=== PATIENT | female | born 1975 | race Caucasian/White ===

== ENCOUNTER → 2018-02-20 08:19 | Outpatient (CLI) | payer OTHER, SELFPAY ==
--- NOTE | 2018-02-20 08:24 | MM_ITS ---
MM Dig SC mamm implant BI CAD CAD Screening ORDERING PHYSICIAN : Connie Martinez PATIENT AGE: 42 years GENDER: Female INDICATION: Routine screening. No new complaints. No hormones. Noncontributory family history. Bilateral breast implants TECHNIQUE: TECHNIQUE: Lyssa technique utilized. CC & MLO images were obtained of the breast tissue overlying implant, as well as a second set of images including the breast implant. Mammography is inherently limited due to the implants is a could obscure areas of breast . R2 CAD reviewed. This Included ... COMPARISON: Previous mammograms: 2014 & July 2014 FINDINGS: Moderately dense heterogeneous breast tissue is seen overlying implants both breast. . Prior films are helpful in showing that there is similar character of this heterogeneous moderately dense glandular pattern,, similar dating back to 2013 mammogram prior to breast implant placement. No definitive new areas of concern. I would encourage regular, annual follow-up to optimally visualize and follow breast tissue for any change Self breast examination would be warranted encouraged as well in this moderately dense breasts. .CAD computer review highlights no areas of concern either. \ IMPRESSION: ======= No new areas of significant concern in this Moderately dense heterogeneous breast .. would recommend & encourage annual follow-up BI-RADS Category: 2 Benign Finding(s) RECOMMENDED FOLLOW-UP: 1YR - 1 YEAR FOLLOW-UP (A letter has been sent to the patient regarding results of the study.)
== END ==
PROVIDERS: Family Provider Family Medicine; PCP Family Medicine; Visit Provider Obstetrics & Gynecology
DX: Z12.31 Encounter for screening mammogram for malignant neoplasm of breast (principal)
CPT/HCPCS: 77067

== ENCOUNTER → 2018-03-25 19:05 | Outpatient (CLI) | payer OTHER, SELFPAY ==
--- NOTE | 2018-03-25 19:18 | XR_ITS ---
XR chest 2V HISTORY: Evaluate for infection before starting new medication ORDERING PHYSICIAN: Magnolia Valles PATIENT AGE: 42 years COMPARISON: 08/14/2014 FINDINGS: The cardiomediastinal silhouette and pulmonary vascularity are within normal limits. The lungs are clear without infiltrates, suspicious nodules, or pleural effusions. Bilateral breast implants somewhat obscure the overlying lung haynes No acute bony abnormalities. IMPRESSION: No acute finding
[2018-03-25 19:50] LABS: Basophils # 0.1 K/mm3 (0-0.2); Basophils % 0.6 % (0.1-2.0); Eosinophils # 0.2 K/mm3 (0.0-0.4); Hematocrit 43.5 % (37.0-47.0); Lymphocytes # 3.7 K/mm3 (0.7-4.5); Mean Corpuscular HGB Conc 32.2 g/dL (31.8-35.4); Mean Corpuscular Hemoglobin 28.9 pg (27.0-31.2); Mean Corpuscular Volume 89.7 fl (81-99); Mean Platelet Volume 7.9 fl (7.4-10.4); Monocytes # 0.6 K/mm3 (0.1-1.0); Monocytes % 5.8 % (1.7-9.3); Neutrophils # 5.7 K/mm3 (1.8-7.8); Neutrophils % 55.6 % (37.0-80.0); Platelet Count 263 K/mm3 (142-424); Red Blood Count 4.85 M/mm3 (4.20-5.40); Red Cell Distribution Width 14.6 % (11.5-17.5); White Blood Count 10.3 K/mm3 (4.8-10.8)
[2018-03-25 22:50] LABS: Alanine Aminotransferase 22 U/L (12-78); Alkaline Phosphatase 87 U/L (46-116); Aspartate Amino Transferase 16 U/L (15-37); Bilirubin,Direct 0.2 mg/dL (0.0-0.2); Bilirubin,Indirect 0.1 mg/dL (0.0-0.9); Bilirubin,Total 0.3 mg/dL (0.2-1.0); Total Protein,Serum 8.7 gm/dL (6.4-8.2)
[2018-03-27 14:48] LABS: Hep B Surface Ab, Qual Reactive (.); Hepatitis B Surface Antigen Negative (Negative); Hepatitis C Antibody <0.1 s/co ratio (0.0-0.9)
[2018-03-27 14:49] LABS: HIV Screen 4th Generation wRfx Non Reactive (Non Reactive)
== END ==
LOC: LAB 19:10 → RAD 19:19
PROVIDERS: PCP Nurse Practitioner; Visit Provider Nurse Practitioner
DX: L40.0 Psoriasis vulgaris (principal); Z79.899 Other long term (current) drug therapy
CPT/HCPCS: 36415; 71046; 80076; 85025; 86703; 86706; 87340; 87380; G0432

== ENCOUNTER → 2018-09-25 09:13 | Outpatient (CLI) | payer OTHER, SELFPAY ==
[2018-09-25 09:28] LABS: Basophils % 0.6 % (0.1-2.0); Eosinophils # 0.1 K/mm3 (0.0-0.4); Hematocrit 37.7 % (37.0-47.0); Hemoglobin 12.1 g/dL (12.2-16.2); Lymphocytes # 1.8 K/mm3 (0.7-4.5); Lymphocytes % 27.5 K/mm3 (10-50); Mean Corpuscular HGB Conc 32.1 g/dL (31.8-35.4); Mean Corpuscular Hemoglobin 28.1 pg (27.0-31.2); Mean Corpuscular Volume 87.6 fl (81-99); Mean Platelet Volume 7.3 fl (7.4-10.4); Monocytes # 0.5 K/mm3 (0.1-1.0); Monocytes % 7.1 % (1.7-9.3); Neutrophils % 62.7 % (37.0-80.0); Platelet Count 271 K/mm3 (142-424); Red Cell Distribution Width 14.5 % (11.5-17.5); White Blood Count 6.4 K/mm3 (4.8-10.8)
[2018-09-25 11:18] LABS: Alanine Aminotransferase 16 U/L (12-78); Albumin Level 4.1 gm/dL (3.4-5.0); Alkaline Phosphatase 66 U/L (46-116); Aspartate Amino Transferase 14 U/L (15-37); Bilirubin,Direct 0.1 mg/dL (0.0-0.2); Bilirubin,Indirect 0.4 mg/dL (0.0-0.9); Bilirubin,Total 0.5 mg/dL (0.2-1.0); Total Protein,Serum 7.2 gm/dL (6.4-8.2)
== END ==
PROVIDERS: Visit Provider Nurse Practitioner
DX: Z79.899 Other long term (current) drug therapy (principal); L40.0 Psoriasis vulgaris
CPT/HCPCS: 36415; 80076; 85025

== ENCOUNTER → 2018-10-18 12:32 | Outpatient (CLI) | payer OTHER, SELFPAY ==
[2018-10-18 13:12] LABS: Basophils # 0.1 K/mm3 (0-0.2); Basophils % 0.6 % (0.1-2.0); Eosinophils # 0.1 K/mm3 (0.0-0.4); Eosinophils % 1.4 % (0.1-12.0); Hematocrit 37.7 % (37.0-47.0); Hemoglobin 11.9 g/dL (12.2-16.2); Lymphocytes # 2.1 K/mm3 (0.7-4.5); Lymphocytes % 26.6 % (10-50); Mean Corpuscular HGB Conc 31.5 g/dL (31.8-35.4); Mean Corpuscular Hemoglobin 27.9 pg (27.0-31.2); Mean Corpuscular Volume 88.3 fl (81-99); Mean Platelet Volume 7.8 fl (7.4-10.4); Monocytes # 0.4 K/mm3 (0.1-1.0); Monocytes % 5.6 % (1.7-9.3); Neutrophils # 5.2 K/mm3 (1.8-7.8); Neutrophils % 65.8 % (37.0-80.0); Platelet Count 247 K/mm3 (142-424); Red Blood Count 4.28 M/mm3 (4.20-5.40); Red Cell Distribution Width 14.6 % (11.5-17.5); White Blood Count 7.9 K/mm3 (4.8-10.8)
[2018-10-18 14:09] LABS: Alanine Aminotransferase 18 U/L (12-78); Albumin Level 3.9 gm/dL (3.4-5.0); Albumin/Globulin Ratio 1.3 (1.1-1.8); Alkaline Phosphatase 53 U/L (46-116); Anion Gap 13.1 mEq/L (5-15); Aspartate Amino Transferase 9 U/L (15-37); Bilirubin,Total 0.6 mg/dL (0.2-1.0); Blood Urea Nitrogen 12 mg/dL (7-18); Calcium 8.6 mg/dL (8.5-10.1); Carbon Dioxide 25 mmol/L (21.0-32.0); Chloride 104 mmol/L (98-107); Chol/HDL Ratio 2.9 (1-3.5); Cholesterol 153 mg/dL (140-200); Creatinine,Serum 0.81 mg/dL (0.55-1.02); Estimated Glomerular Filt Rate 77 ml/min (>60); GFR (African American) 93 ML/MIN (>60); Glucose 87 mg/dL (74-106); HDL Cholesterol 52 mg/dL (29-89); LDL Cholesterol 92 mg/dL (0-130); Potassium 4.1 mmoL/L (3.5-5.1); Sodium 138 mmol/L (136-145); Total Protein,Serum 6.9 gm/dL (6.4-8.2); Triglycerides 44 mg/dL (30-200); VLDL Cholesterol 9 mg/dL (0-40)
[2018-10-20 11:39] LABS: Iron 91 ug/dL (27-159); UIBC 241 ug/dL (131-425)
[2018-10-20 14:16] LABS: Iron Saturation 27 % (15-55); Vitamin D 25 Hydroxy 36.3 ng/mL (30.0-100.0)
[2018-10-20 14:46] LABS: Endomysial IgA Antibody Negative (Negative)
[2018-10-21 06:08] LABS: Deamidated Gliadin Abs, IgA 4 units (0-19); Deamidated Gliadin Abs, IgG 1 units (0-19); Tissue Transglutaminase IgA Ab <2 U/mL (0-3); Tissue Transglutaminase IgG Ab <2 U/mL (0-5)
[2018-10-21 06:09] LABS: Reticulin IgA Antibody Negative titer (Neg:<1:2.5); Vitamin B12 332 pg/mL (232-1245)
== END ==
PROVIDERS: Visit Provider Nurse Practitioner Acute Care
DX: R53.83 Other fatigue (principal)
CPT/HCPCS: 36415; 80053; 80061; 82607; 82652; 83516; 83540; 83550; 85025; 86255; 86256

== ENCOUNTER → 2019-01-15 20:55 | Outpatient (CLI) | payer BC, OTHER, SELFPAY ==
--- NOTE | 2019-01-15 21:25 | XR_ITS ---
XR chest 2V HISTORY: Dry cough ITS.REASON: PT IS ON SN[facility] BIOLOGIC MEDICATION, COUGH ORDERING PHYSICIAN: Amara Treviño PATIENT AGE: 43 years COMPARISON: 03 25 18 FINDINGS: The cardiomediastinal silhouette and pulmonary vascularity are within normal limits. The lungs are clear without infiltrates, suspicious nodules, or pleural effusions. Bilateral breast implants present No acute bony abnormalities. IMPRESSION: No change with no acute finding
[2019-01-15 21:29] LABS: Basophils # 0.1 K/mm3 (0-0.2); Basophils % 0.7 % (0.1-2.0); Eosinophils # 0.2 K/mm3 (0.0-0.4); Eosinophils % 1.8 % (0.1-12.0); Hematocrit 37.7 % (37.0-47.0); Hemoglobin 12.1 g/dL (12.2-16.2); Lymphocytes # 3.1 K/mm3 (0.7-4.5); Lymphocytes % 33.7 % (10-50); Mean Corpuscular HGB Conc 32.2 g/dL (31.8-35.4); Mean Corpuscular Hemoglobin 28.2 pg (27.0-31.2); Mean Corpuscular Volume 87.6 fl (81-99); Mean Platelet Volume 7.5 fl (7.4-10.4); Monocytes # 0.5 K/mm3 (0.1-1.0); Monocytes % 5.9 % (1.7-9.3); Neutrophils # 5.3 K/mm3 (1.8-7.8); Neutrophils % 57.9 % (37.0-80.0); Platelet Count 289 K/mm3 (142-424); Red Blood Count 4.31 M/mm3 (4.20-5.40); Red Cell Distribution Width 14.8 % (11.5-17.5); White Blood Count 9.1 K/mm3 (4.8-10.8)
[2019-01-15 23:38] LABS: Alanine Aminotransferase 16 U/L (12-78); Albumin Level 4.2 gm/dL (3.4-5.0); Albumin/Globulin Ratio 1.2 (1.1-1.8); Alkaline Phosphatase 79 U/L (46-116); Anion Gap 11.9 mEq/L (5-15); Aspartate Amino Transferase 7 U/L (15-37); Bilirubin,Total 0.3 mg/dL (0.2-1.0); Blood Urea Nitrogen 9 mg/dL (7-18); Calcium 9.1 mg/dL (8.5-10.1); Carbon Dioxide 29 mmol/L (21.0-32.0); Chloride 102 mmol/L (98-107); Estimated Glomerular Filt Rate 68 ml/min (>60); GFR (African American) 82 ML/MIN (>60); Globulin 3.5 gm/dl (1.3-3.2); Glucose 96 mg/dL (74-106); Potassium 3.9 mmoL/L (3.5-5.1); Sodium 139 mmol/L (136-145); Thyroid Stimulating Hormone 3.76 uIU/ml (0.358-3.740); Total Protein,Serum 7.7 gm/dL (6.4-8.2)
== END ==
PROVIDERS: PCP Family Medicine; Visit Provider Nurse Practitioner Acute Care
DX: R23.3 Spontaneous ecchymoses (principal); Z79.899 Other long term (current) drug therapy
CPT/HCPCS: 36415; 71046; 80053; 84443; 85025

== ENCOUNTER → 2019-01-16 10:30 | Outpatient (CLI) | payer BC, OTHER, SELFPAY ==
[2019-01-26 18:51] LABS: Occult Blood,Stool Negative (Negative)
== END ==
PROVIDERS: Visit Provider Nurse Practitioner Acute Care
DX: R23.3 Spontaneous ecchymoses (principal); Z79.899 Other long term (current) drug therapy
CPT/HCPCS: 82272; G0328

== ENCOUNTER → 2019-01-19 17:00 | Outpatient (CLI) | payer BC, OTHER, SELFPAY ==
[2019-01-26 18:51] LABS: Occult Blood,Stool Negative (Negative)
== END ==
PROVIDERS: Visit Provider Nurse Practitioner Acute Care
DX: R23.3 Spontaneous ecchymoses (principal); Z79.899 Other long term (current) drug therapy
CPT/HCPCS: 82272; G0328

== ENCOUNTER → 2019-01-20 18:30 | Outpatient (CLI) | payer BC, OTHER, SELFPAY ==
[2019-01-26 18:52] LABS: Occult Blood,Stool Negative (Negative)
== END ==
PROVIDERS: Visit Provider Nurse Practitioner Acute Care
DX: R23.3 Spontaneous ecchymoses (principal); Z79.899 Other long term (current) drug therapy
CPT/HCPCS: 82272; G0328

== ENCOUNTER → 2019-10-19 08:13 | Outpatient (CLI) | payer BC, OTHER, SELFPAY ==
--- NOTE | 2019-10-19 08:27 | MM_ITS ---
PROCEDURE: MM DIG SC MAMM IMPLANT BI CAD CLINICAL INDICATION: SCREENING There is no personal or family history of breast cancer. Patient has bilateral breast implants. COMPARISON: DMDB DIG MAMM-DX TK from 08/13/2014 DMID DIG MAMM-IMPLANT DX from 09/09/2015 [facility] MM Dig SC mamm implant BI CAD from 02/20/2018 TECHNIQUE: Standard CC and MLO images were obtained. R2 CAD reviewed in addition to specialized Aminata views. FINDINGS: The bilateral breast implants are intact with no evidence of leakage. Moderate heterogenic fibroglandular densities are seen in the [place] breast tissue. Heterogenic densities are most prominent in the upper outer quadrants as noted previously. There is a benign-appearing calcification right breast. There is no new or suspicious lesion and no suspicious microcalcifications. IMPRESSION: Stable exam with no suspicious lesions seen BI-RAD Category: 2 Benign Finding(s) FOLLOW-UP: 1YR 1 Year Follow-up (A letter has been sent to the patient regarding results of the study.) Dictated by: Dr. Remy Anderson MD 10/21/2019 13:[address] Remy Anderson MD in [place] 10/21/2019 13:54
[2019-10-19 09:41] LABS: Basophils # 0.1 K/mm3 (0-0.2); Basophils % 0.7 % (0.1-2.0); Eosinophils # 0.1 K/mm3 (0.0-0.4); Eosinophils % 2.1 % (0.1-12.0); Hematocrit 40.3 % (37.0-47.0); Hemoglobin 12.1 g/dL (12.2-16.2); Mean Corpuscular Hemoglobin 27.5 pg (27.0-31.2); Mean Corpuscular Volume 91.8 fl (81-99); Mean Platelet Volume 7.9 fl (7.4-10.4); Monocytes # 0.4 K/mm3 (0.1-1.0); Monocytes % 6.3 % (1.7-9.3); Neutrophils # 4.2 K/mm3 (1.8-7.8); Neutrophils % 61.9 % (37.0-80.0); Platelet Count 284 K/mm3 (142-424); Red Blood Count 4.39 M/mm3 (4.20-5.40); Red Cell Distribution Width 16.1 % (11.5-17.5); White Blood Count 6.8 K/mm3 (4.8-10.8)
[2019-10-19 10:34] LABS: Alanine Aminotransferase 14 U/L (12-78); Albumin Level 4.4 gm/dL (3.4-5.0); Albumin/Globulin Ratio 1.3 (1.1-1.8); Alkaline Phosphatase 68 U/L (46-116); Anion Gap 13.9 mEq/L (5-15); Aspartate Amino Transferase 16 U/L (15-37); Bilirubin,Total 0.4 mg/dL (0.2-1.0); Blood Urea Nitrogen 9 mg/dL (7-18); Calcium 9.2 mg/dL (8.5-10.1); Carbon Dioxide 27 mmol/L (21.0-32.0); Chloride 102 mmol/L (98-107); Creatinine,Serum 0.85 mg/dL (0.55-1.02); Estimated Glomerular Filt Rate 72 ml/min (>60); GFR (African American) 88 ML/MIN (>60); Globulin 3.4 gm/dl (1.3-3.2); Glucose 90 mg/dL (74-106); Potassium 3.9 mmoL/L (3.5-5.1); Sodium 139 mmol/L (136-145); Total Protein,Serum 7.8 gm/dL (6.4-8.2)
[2019-10-19 10:40] LABS: Chol/HDL Ratio 2.9 (1-3.5); Cholesterol 171 mg/dL (140-200); HDL Cholesterol 58 mg/dL (29-89); LDL Cholesterol 103 mg/dL (0-130); T4 (Thyroxine) 6.3 ug/dl (4.7-13.3); Thyroid Stimulating Hormone 2.54 uIU/ml (0.358-3.740); Triglycerides 50 mg/dL (30-200); VLDL Cholesterol 10 mg/dL (0-40)
[2019-10-20 11:29] LABS: Triiodothyronine (T3) Total 96 ng/dL (71-180); Vitamin B12 432 pg/mL (232-1245); Vitamin D 25 Hydroxy 38.2 ng/mL (30.0-100.0)
[2019-10-23 10:27] LABS: QuantiFERON-TB Gold Plus Negative (Negative)
== END ==
PROVIDERS: Nurse Practitioner Family; Physician Assistant Medical; PCP Family Medicine; Visit Provider Nurse Practitioner Women's Health
DX: Z12.31 Encounter for screening mammogram for malignant neoplasm of breast (principal); R53.83 Other fatigue; L40.0 Psoriasis vulgaris; L29.8 Other pruritus; M25.50 Pain in unspecified joint; R63.4 Abnormal weight loss; Z79.899 Other long term (current) drug therapy
CPT/HCPCS: 36415; 77067; 80053; 80061; 82607; 82652; 84436; 84443; 84480; 85025; 86480

== ENCOUNTER → 2020-04-13 09:52 | Outpatient (CLI) | payer OTHER, SELFPAY ==
[2020-04-13 10:10] LABS: Basophils # 0.2 K/mm3 (0-0.2); Basophils % 2.1 % (0.1-2.0); Eosinophils # 0.2 K/mm3 (0.0-0.4); Hemoglobin 12.4 g/dL (12.2-16.2); Lymphocytes # 2.1 K/mm3 (0.7-4.5); Lymphocytes % 24.7 % (10-50); Mean Corpuscular HGB Conc 30.3 g/dL (31.8-35.4); Mean Corpuscular Volume 89.1 fl (81-99); Mean Platelet Volume 8.4 fl (7.4-10.4); Monocytes # 0.5 K/mm3 (0.1-1.0); Monocytes % 5.3 % (1.7-9.3); Neutrophils # 5.7 K/mm3 (1.8-7.8); Neutrophils % 65.9 % (37.0-80.0); Platelet Count 283 K/mm3 (142-424); Red Blood Count 4.61 M/mm3 (4.20-5.40); Red Cell Distribution Width 15.8 % (11.5-17.5); White Blood Count 8.6 K/mm3 (4.8-10.8)
[2020-04-13 10:15] LABS: Chloride 102 mmol/L (98-107); Potassium 4.1 mmoL/L (3.5-5.1); Sodium 136 mmol/L (136-145)
[2020-04-13 10:18] LABS: Alanine Aminotransferase 12 U/L (12-78); Albumin Level 4.6 g/dl (3.5-5.0); Albumin/Globulin Ratio 1.5 (1.1-1.8); Alkaline Phosphatase 61 U/L (38-126); Amylase 57 U/L (30-110); Anion Gap 11.1 mEq/L (5-15); Aspartate Amino Transferase 23 U/L (14-36); Bilirubin,Total 0.6 mg/dl (0.2-1.3); Blood Urea Nitrogen 7 mg/dl (7-17); Carbon Dioxide 27 mmol/L (22.0-30.0); Estimated Glomerular Filt Rate 78 ml/min (>60); GFR (African American) 94 ML/MIN (>60); Lipase 109 U/L (23-300); Total Protein,Serum 7.6 g/dl (6.3-8.2)
[2020-04-13 10:24] LABS: Calcium 9.5 mg/dl (8.4-10.2)
[2020-04-13 10:32] LABS: Glucose 109 mg/dl (74-100)
[2020-04-13 14:13] LABS: Adenovirus F 40/41, stool Not Detected (NotDetected); Astrovirus Not Detected (NotDetected); Campylobacter Not Detected (NotDetected); Clostridium Difficile A/B, PCR Not Detected (NotDetected); Cryptosporidium Not Detected (NotDetected); Cyclospora Cayetanesis Not Detected (NotDetected); Entamoeba histolytica Not Detected (NotDetected); Enteroaggregative E coli Not Detected (NotDetected); Enteropathogenic E coli Not Detected (NotDetected); Enterotoxigenic E coli Not Detected (NotDetected); Giardia lamblia Not Detected (NotDetected); Norovirus Not Detected (NotDetected); Plesimonas Shigalloides, PCR Not Detected (NotDetected); Rotavirus A Not Detected (NotDetected); Salmonella, PCR Not Detected (NotDetected); Sapovirus Not Detected (NotDetected); Shiga-like toxin E coli Not Detected (NotDetected); Shigella Enterovasive E coli Not Detected (NotDetected); Vibrio Cholerae Not Detected (NotDetected); Vibrio, PCR Not Detected (NotDetected); Yersinia Entercolitica, PCR Not Detected (NotDetected)
== END ==
PROVIDERS: Visit Provider Internal Medicine Gastroenterology
DX: R19.7 Diarrhea, unspecified (principal)
CPT/HCPCS: 36415; 80053; 82150; 83690; 85025; 87507

== ENCOUNTER → 2020-06-02 10:03 | Outpatient (CLI) | payer OTHER, SELFPAY ==
[2020-06-03 16:34] LABS: Covid-19 Nasal PCR Sendout Lex POSITIVE
== END ==
PROVIDERS: PCP Internal Medicine; Visit Provider Internal Medicine Gastroenterology
DX: U07.1 COVID-19 (principal)
CPT/HCPCS: U0004

== ENCOUNTER → 2020-07-18 12:38 | Outpatient (CLI) | payer OTHER, SELFPAY ==
[2020-07-18 13:12] LABS: Basophils % 0.3 % (0.1-2.0); Eosinophils # 0.1 K/mm3 (0.0-0.4); Eosinophils % 1.9 % (0.1-12.0); Hematocrit 35.7 % (37.0-47.0); Hemoglobin 11.4 g/dL (12.2-16.2); Lymphocytes # 2.1 K/mm3 (0.7-4.5); Lymphocytes % 27.5 % (10-50); Mean Corpuscular HGB Conc 31.8 g/dL (31.8-35.4); Mean Corpuscular Hemoglobin 27.9 pg (27.0-31.2); Mean Corpuscular Volume 87.7 fl (81-99); Monocytes # 0.4 K/mm3 (0.1-1.0); Monocytes % 5.5 % (1.7-9.3); Neutrophils % 64.8 % (37.0-80.0); Platelet Count 281 K/mm3 (142-424); Red Blood Count 4.07 M/mm3 (4.20-5.40); White Blood Count 7.7 K/mm3 (4.8-10.8)
[2020-07-18 13:41] LABS: Alanine Aminotransferase 15 U/L (12-78); Albumin Level 4.2 g/dl (3.5-5.0); Albumin/Globulin Ratio 1.6 (1.1-1.8); Alkaline Phosphatase 76 U/L (38-126); Anion Gap 12.2 mEq/L (5-15); Aspartate Amino Transferase 24 U/L (14-36); Bilirubin,Total 0.4 mg/dl (0.2-1.3); Blood Urea Nitrogen 9 mg/dl (7-17); Calcium 9.4 mg/dl (8.4-10.2); Carbon Dioxide 29 mmol/L (22.0-30.0); Chloride 102 mmol/L (98-107); Estimated Glomerular Filt Rate 60 ml/min (>60); GFR (African American) 73 ML/MIN (>60); Globulin 2.6 g/dL (1.3-3.2); Glucose 115 mg/dl (74-100); Potassium 4.2 mmoL/L (3.5-5.1); Sodium 139 mmol/L (136-145); Total Protein,Serum 6.8 g/dl (6.3-8.2)
[2020-07-18 13:58] LABS: 25-OH Vitamin D, Total 45.3 ng/mL (30-100); Free T4 (Free Thyroxine) 0.99 ng/dl (0.78-2.19)
[2020-07-18 14:12] LABS: Thyroid Stimulating Hormone 1.55 uIU/mL (0.465-4.68)
[2020-07-19 08:13] LABS: Vitamin B12 456 pg/mL (232-1245)
== END ==
PROVIDERS: Visit Provider Internal Medicine Gastroenterology
DX: R53.83 Other fatigue (principal); R63.4 Abnormal weight loss
CPT/HCPCS: 36415; 80053; 82306; 82607; 84439; 84443; 85025

== ENCOUNTER → 2020-09-15 20:15 | Outpatient (CLI) | payer OTHER, SELFPAY ==
[2020-09-15 20:48] LABS: Microscopic, Urine URINE MICROSCOPIC (MICROSCOPIC)
[2020-09-15 22:15] LABS: Appearance,Urine CLEAR (Clear); Bilirubin,Urine Negative (Negative); Blood, Urine TRACE-I (Negative); Color,Urine YELLOW (Yellow); Glucose,Urine (UA) Negative (Negative); Ketones,Urine Negative (Negative); Leukocyte Esterase,Urine TRACE (Negative); Nitrate,Urine POSITIVE (Negative); PH,Urine 6.5 (5.0-8.5); Protein,Urine Negative (Negative); Urobilinogen,Urine 0.2 EU/dl (0.2)
[2020-09-15 22:51] LABS: Bacteria,Urine Trace /lpf; RBC,Urine Occasional #/hpf (0-3)
== END ==
PROVIDERS: PCP Internal Medicine; Visit Provider Nurse Practitioner Family
DX: R30.0 Dysuria (principal)
CPT/HCPCS: 81001; 87086; 87088; 87186

== ENCOUNTER → 2020-10-24 07:46 | Outpatient (CLI) | payer OTHER, SELFPAY ==
--- NOTE | 2020-10-24 07:49 | MM_ITS ---
PROCEDURE: MM DIG SC MAMM IMPLANT BI CAD Digital Breast Tomosynthesis Included CLINICAL INDICATION: SCREENING There is a history of breast cancer in the patient's paternal cousin. Patient has bilateral breast implants. COMPARISON: MG DMID DIG MAMM-IMPLANT DX from 09/09/2015 MG [facility] MM Dig SC mamm implant BI CAD from 02/20/2018 MG MM DIG SC MAMM IMPLANT BI CAD from 10/19/2019 TECHNIQUE: Standard CC and MLO images and 3D Tomosynthesis was obtained. R2 CAD reviewed. Additional Aminata views were obtained bilaterally. FINDINGS: The bilateral breast implants appear intact smooth margins with no evidence leakage. Somewhat heterogenic fibroglandular densities in the [place] breast tissue. There is a mole marker on each breast. There is no suspicious lesion in either breast and no suspicious microcalcifications. IMPRESSION: Stable exam, both breast implants intact BI-RAD Category: 2 Benign Finding(s) FOLLOW-UP: 1YR 1 Year Follow-up (A letter has been sent to the patient regarding results of the study.) Dictated by: Dr. Remy Anderson MD 10/25/2020 10:03 Dr. Remy Anderson MD in [place] 10/25/2020 10:03
[2020-10-24 09:41] LABS: Basophils # 0.1 K/mm3 (0-0.2); Basophils % 0.5 % (0.1-2.0); Eosinophils # 0.2 K/mm3 (0.0-0.4); Hematocrit 39.8 % (37.0-47.0); Hemoglobin 12.3 g/dL (12.2-16.2); Lymphocytes # 2.4 K/mm3 (0.7-4.5); Lymphocytes % 26.6 % (10-50); Mean Corpuscular HGB Conc 30.9 g/dL (31.8-35.4); Mean Corpuscular Hemoglobin 27.2 pg (27.0-31.2); Mean Corpuscular Volume 87.9 fl (81-99); Mean Platelet Volume 8.1 fl (7.4-10.4); Monocytes # 0.7 K/mm3 (0.1-1.0); Monocytes % 7.8 % (1.7-9.3); Neutrophils # 5.8 K/mm3 (1.8-7.8); Neutrophils % 63.1 % (37.0-80.0); Platelet Count 250 K/mm3 (142-424); Red Blood Count 4.53 M/mm3 (4.20-5.40); Red Cell Distribution Width 15.7 % (11.5-17.5); White Blood Count 9.2 K/mm3 (4.8-10.8)
[2020-10-24 10:35] LABS: Chloride 104 mmol/L (98-107); Sodium 140 mmol/L (136-145)
[2020-10-24 10:38] LABS: Alanine Aminotransferase 15 U/L (12-78); Albumin Level 5.6 g/dl (3.5-5.0); Albumin/Globulin Ratio 1.5 (1.1-1.8); Alkaline Phosphatase 79 U/L (38-126); Aspartate Amino Transferase 26 U/L (14-36); Bilirubin,Total 0.6 mg/dl (0.2-1.3); Blood Urea Nitrogen 11 mg/dl (7-17); Carbon Dioxide 24 mmol/L (22.0-30.0); Estimated Glomerular Filt Rate 67 ml/min (>60); GFR (African American) 82 ML/MIN (>60); Globulin 3.7 g/dL (1.3-3.2); Total Protein,Serum 9.3 g/dl (6.3-8.2)
[2020-10-24 10:39] LABS: Calcium 10.2 mg/dl (8.4-10.2); Glucose 92 mg/dl (74-100)
[2020-11-07 12:10] LABS: QuantiFERON-TB Gold Plus Negative
== END ==
PROVIDERS: Physician Assistant Medical; PCP Internal Medicine; Visit Provider Nurse Practitioner Women's Health
DX: Z12.31 Encounter for screening mammogram for malignant neoplasm of breast (principal); L40.0 Psoriasis vulgaris; L29.8 Other pruritus; L40.59 Other psoriatic arthropathy; D22.5 Melanocytic nevi of trunk; Z79.899 Other long term (current) drug therapy; D22.72 Melanocytic nevi of left lower limb, including hip
CPT/HCPCS: 36415; 77063; 77067; 80053; 85025; 86480

== ENCOUNTER → 2020-10-24 08:37 | Outpatient (CLI) | payer OTHER, SELFPAY | PROVIDERS: Visit Provider Physician Assistant Medical | DX: L40.0 Psoriasis vulgaris (principal); Z79.899 Other long term (current) drug therapy | CPT/HCPCS: 36415; 80053; 85025; 86480 ==

== ENCOUNTER → 2020-11-13 13:58 | Outpatient (CLI) | payer OTHER, SELFPAY ==
[2020-11-13 14:43] LABS: Basophils # 0.1 K/mm3 (0-0.2); Basophils % 0.7 % (0.1-2.0); Eosinophils # 0.1 K/mm3 (0.0-0.4); Eosinophils % 1.6 % (0.1-12.0); Hemoglobin 12.1 g/dL (12.2-16.2); Lymphocytes # 2.5 K/mm3 (0.7-4.5); Lymphocytes % 30.1 % (10-50); Mean Corpuscular HGB Conc 31.9 g/dL (31.8-35.4); Mean Corpuscular Hemoglobin 27.6 pg (27.0-31.2); Mean Corpuscular Volume 86.4 fl (81-99); Mean Platelet Volume 8.2 fl (7.4-10.4); Monocytes # 0.7 K/mm3 (0.1-1.0); Monocytes % 7.9 % (1.7-9.3); Neutrophils # 4.9 K/mm3 (1.8-7.8); Neutrophils % 59.7 % (37.0-80.0); Platelet Count 273 K/mm3 (142-424); Red Blood Count 4.39 M/mm3 (4.20-5.40); Red Cell Distribution Width 15.9 % (11.5-17.5); White Blood Count 8.3 K/mm3 (4.8-10.8)
[2020-11-13 14:49] LABS: Chloride 104 mmol/L (98-107); Sodium 135 mmol/L (136-145)
[2020-11-13 14:50] LABS: Potassium 3.6 mmoL/L (3.5-5.1)
[2020-11-13 14:51] LABS: Alanine Aminotransferase 10 U/L (12-78); Aspartate Amino Transferase 22 U/L (14-36); Blood Urea Nitrogen 7 mg/dl (7-17); Estimated Glomerular Filt Rate 90 ml/min (>60); GFR (African American) 109 ML/MIN (>60)
[2020-11-13 14:52] LABS: Albumin Level 4.2 g/dl (3.5-5.0); Albumin/Globulin Ratio 1.4 (1.1-1.8); Alkaline Phosphatase 64 U/L (38-126); Anion Gap 10.6 mEq/L (5-15); Bilirubin,Total 0.6 mg/dl (0.2-1.3); Calcium 9.3 mg/dl (8.4-10.2); Carbon Dioxide 24 mmol/L (22.0-30.0); Globulin 3.1 g/dL (1.3-3.2); Glucose 109 mg/dl (74-100); Iron 56 ug/dL (37-170); Total Protein,Serum 7.3 g/dl (6.3-8.2)
[2020-11-13 15:19] LABS: Erythrocyte Sedimentation Rate 13 mm/hr (0-20)
[2020-11-13 16:03] LABS: Vitamin B12 344 pg/mL (239-931)
[2020-11-13 16:28] LABS: C-Reactive Protein 0.6 mg/L (0-4)
[2020-11-13 16:31] LABS: Total Iron Binding Capacity 359 ug/dL (265-497)
[2020-11-13 16:35] LABS: 25-OH Vitamin D, Total 43.8 ng/mL (30-100)
[2020-11-13 16:53] LABS: Thyroid Stimulating Hormone 1.87 uIU/mL (0.465-4.68)
[2020-11-15 10:27] LABS: Hep A Ab, Total Negative (Negative); Hepatitis B Surf Ab Quant 152.5 mIU/mL (Immunity>9.9); Hepatitis C Antibody <0.1 s/co ratio (0.0-0.9)
== END ==
PROVIDERS: PCP Physician Assistant Medical; Visit Provider Nurse Practitioner Family
DX: R63.4 Abnormal weight loss (principal); R94.5 Abnormal results of liver function studies; R53.83 Other fatigue; E88.09 Other disorders of plasma-protein metabolism, not elsewhere classified
CPT/HCPCS: 36415; 80053; 82306; 82607; 83540; 83550; 84439; 84443; 85025; 85651; 86140; 86706; 86708; 87380

== ENCOUNTER → 2021-09-07 10:12 | Outpatient (CLI) | payer OTHER, SELFPAY | PROVIDERS: Visit Provider Internal Medicine Cardiovascular Disease | DX: R07.9 Chest pain, unspecified (principal); R06.00 Dyspnea, unspecified; R00.2 Palpitations; R60.9 Edema, unspecified | CPT/HCPCS: 93270 ==

== ENCOUNTER → 2021-09-07 10:45 | Outpatient (CLI) | payer OTHER, SELFPAY ==
[2021-09-07 11:16] LABS: Coronavirus 19 IgG Antibody Negative (Negative); Coronavirus 19 IgM Antibody Negative (Negative)
[2021-09-07 11:40] LABS: NT Pro Brain Natriuretic Pep. 106 pg/mL (0-125)
== END ==
PROVIDERS: Visit Provider Internal Medicine Cardiovascular Disease
DX: R07.9 Chest pain, unspecified (principal); R06.00 Dyspnea, unspecified; Z20.822 Contact with and (suspected) exposure to COVID-19
CPT/HCPCS: 36415; 83880; 86328

== ENCOUNTER → 2021-09-08 06:16 | Outpatient (CLI) | payer SELFPAY ==
--- NOTE | 2021-09-08 06:18 | CT_ITS ---
PROCEDURE: CT HEART W CALCIUM SCORE CLINICAL HISTORY: chest pain COMPARISON: CR CXR2V XR chest 2V from 01/15/2019 TECHNIQUE: Axial images obtained with sagittal and coronal reformats. All CT scans at the facility use one or more dose reduction, viz: automated exposure control, ma/kV adjustment per patient size (including targeted exams where dose is matched to indication, i.e. head), or iterative reconstruction technique. FINDINGS: Coronary artery calcium score is 0. No identifiable calcific atherosclerotic plaque with very low cardiovascular disease risk Incidental note is made of bilateral breast implants IMPRESSION: No identifiable calcific atherosclerotic plaque with very low cardiovascular disease risk Dictated by: John Gracia MD 09/08/2021 08:13 John Gracia MD in [place] 09/08/2021 08:13
== END ==
PROVIDERS: PCP Physician Assistant Medical; Visit Provider Internal Medicine Cardiovascular Disease
DX: Z13.6 Encounter for screening for cardiovascular disorders (principal); R06.00 Dyspnea, unspecified; R07.9 Chest pain, unspecified
CPT/HCPCS: 75571

== ENCOUNTER → 2021-11-01 08:02 | Outpatient (CLI) | payer OTHER, SELFPAY ==
--- NOTE | 2021-11-01 08:10 | MM_ITS ---
PROCEDURE INFORMATION: Exam: MG Bilateral Screening 3D Mammography Exam date and time: 11/01/2021 8:10 AM Age: 46 years old Clinical indication: Screening mammogram TECHNIQUE: Imaging protocol: Bilateral screening tomosynthesis and 2D mammography including computer-aided detection (CAD) when performed. COMPARISON: 1. MG MM DIG SC MAMM IMPLANT BI CAD 10/24/2020 8:08 AM 2. MG MM DIG SC MAMM IMPLANT BI CAD 10/19/2019 8:40 AM 3. MG [facility] MM Dig SC mamm implant BI CAD 02/20/2018 8:35 AM 4. MG DMID DIG MAMM-IMPLANT DX 09/09/2015 3:06 PM FINDINGS: MAMMOGRAPHY: Breast composition: The breast tissue is heterogeneously dense, which may obscure small masses. Mass: None. Architectural distortion: No new or suspicious architectural distortion. Calcifications: No new or suspicious calcifications are present Asymmetric density: No new or suspicious asymmetric density is present Skin thickening: None. Axillary adenopathy: None. Implants: Subpectoral augmentation implants are present. IMPRESSION: No mammographic evidence of malignancy. Recommend annual screening mammography unless otherwise clinically indicated. ASSESSMENT: BI-RADS category 1: Negative
== END ==
PROVIDERS: PCP Physician Assistant Medical; Visit Provider Nurse Practitioner Women's Health
DX: Z12.31 Encounter for screening mammogram for malignant neoplasm of breast (principal)
CPT/HCPCS: 77063; 77067

== ENCOUNTER → 2023-04-15 07:48 | Outpatient (CLI) | payer OTHER, SELFPAY ==
--- NOTE | 2023-04-15 08:11 | MM_ITS ---
PROCEDURE INFORMATION: Exam: MG Bilateral Screening 3D Mammography Exam date and time: 04/15/2023 8:01 AM Age: 47 years old Clinical indication: Screening examination TECHNIQUE: Imaging protocol: Bilateral Screening tomosynthesis and 2D mammography including computer-aided detection (CAD) when performed. COMPARISON: 1. MG MM DIG SC MAMM IMPLANT BI CAD 11/01/2021 8:07 AM 2. MG MM DIG SC MAMM IMPLANT BI CAD 10/24/2020 8:08 AM FINDINGS: MAMMOGRAPHY: Breast composition: The breasts are heterogeneously dense, which may obscure small masses. Mass: None. Architectural distortion: None. Calcifications: No suspicious calcifications. Asymmetric density: None. Skin thickening: None. Axillary adenopathy: None. Implants: Subpectoral silicone breast implants are present. The contours are smooth. IMPRESSION: No mammographic evidence of malignancy. Annual screening is recommended unless otherwise clinically indicated. ASSESSMENT: BI-RADS Category 1: Negative
[2023-04-15 08:17] LABS: Basophils # 0.1 K/mm3 (0-0.2); Basophils % 0.9 % (0.1-2.0); Eosinophils # 0.1 K/mm3 (0.0-0.4); Eosinophils % 2.3 % (0.1-12.0); Hematocrit 44.1 % (37.0-47.0); Hemoglobin 14.1 g/dL (12.2-16.2); Lymphocytes # 2.3 K/mm3 (0.7-4.5); Lymphocytes % 36.2 % (10-50); Mean Corpuscular HGB Conc 31.8 g/dL (31.8-35.4); Mean Corpuscular Hemoglobin 30.8 pg (27.0-31.2); Mean Corpuscular Volume 96.9 fl (81-99); Mean Platelet Volume 8.3 fl (7.4-10.4); Monocytes # 0.4 K/mm3 (0.1-1.0); Monocytes % 6.9 % (1.7-9.3); Neutrophils # 3.3 K/mm3 (1.8-7.8); Neutrophils % 53.8 % (37.0-80.0); Platelet Count 184 K/mm3 (142-424); Red Blood Count 4.56 M/mm3 (4.20-5.40); Red Cell Distribution Width 13.3 % (11.5-17.5); White Blood Count 6.2 K/mm3 (4.8-10.8)
[2023-04-15 08:55] LABS: Alanine Aminotransferase 23 U/L (12-78); Albumin Level 4.3 g/dl (3.5-5.0); Albumin/Globulin Ratio 1.9 (1.1-1.8); Alkaline Phosphatase 66 U/L (38-126); Anion Gap 11.1 mEq/L (5-15); Aspartate Amino Transferase 27 U/L (14-36); Bilirubin,Total 0.6 mg/dl (0.2-1.3); Blood Urea Nitrogen 9 mg/dl (7-17); Calcium 9.1 mg/dl (8.4-10.2); Carbon Dioxide 28 mmol/L (22.0-30.0); Chloride 104 mmol/L (98-107); Estimated Glomerular Filt Rate 89 ml/min (>60); GFR (African American) 108 ML/MIN (>60); Globulin 2.3 g/dL (1.3-3.2); Glucose 111 mg/dl (74-100); Potassium 4.1 mmoL/L (3.5-5.1); Sodium 139 mmol/L (136-145); Total Protein,Serum 6.6 g/dl (6.3-8.2)
[2023-04-17 20:30] LABS: QuantiFERON-TB Gold Plus Negative (Negative)
== END ==
PROVIDERS: Physician Assistant Medical; PCP Physician Assistant Medical; Visit Provider Obstetrics & Gynecology
DX: Z12.31 Encounter for screening mammogram for malignant neoplasm of breast (principal); Z79.899 Other long term (current) drug therapy
CPT/HCPCS: 36415; 77063; 77067; 80053; 85025; 86480

== ENCOUNTER 2023-07-26 14:00 | Emergency (ER) | payer OTHER, SELFPAY ==
[2023-07-26 14:55] VITALS: BP 107/82; PULSE 80; RESP 20; TEMP 36.7; O2SAT 98; BMI 15.7
[2023-07-26 14:56] LABS: Microscopic, Urine URINE MICROSCOPIC (MICROSCOPIC)
[2023-07-26 15:09] LABS: Color,Urine Yellow (Yellow)
[2023-07-26 15:10] LABS: Appearance,Urine Clear (Clear); Blood, Urine 1+ (Negative); Glucose,Urine (UA) Negative (Negative); Ketones,Urine Negative (Negative); Nitrate,Urine Negative (Negative); Protein,Urine Negative (Negative)
[2023-07-26 15:11] LABS: Bilirubin,Urine Negative (Negative); Leukocyte Esterase,Urine Negative (Negative); Urobilinogen,Urine 0.2 EU/dl (0.2)
--- NOTE | 2023-07-26 15:18 | EXP.UTC ---
Discharge Plan Disposition Patient Disposition: Home, Self-Care Condition: Good Referrals Follow up/Referrals: Cele Gregorio PA [Primary Care Provider] - See instructions Activity Restrictions/Add. Instructions Additional Instructions/Restrictions: Follow up with your Family Doctor for further testing and imaging if pain returns Drink plenty of fluids Return if needed Straight to ER if any life threatening symptoms Clinical Impressions Clinical Impression: Urinary frequency Instructions Patient Instructions: DI for Flank Pain Discharge ED Provider: Nayana Sweeney [facility] General Stated complaint: back pain and pain in urination Mode of Arrival: Ambulatory Source of Information: Patient Limitations: No Limitations Time Seen by Provider: 07/26/23 15:18 Description of Symptoms (Recalled from Triage Doc. by RN): PATIENT C/O URINARY FREQUENCY, BILATERAL BACK PAIN, URGENCY, AND SAND/BLACK SPECKS IN URINE X 2 DAYS HEENT Symptoms (Recalled from RN notes): No Resp Symptoms (Recalled from RN notes): No Skin Symptoms (Recalled from RN notes): No MS Symptoms (Recalled from RN notes): No Functional Status (Recalled from RN notes): WNL History of Present Illness Provider Complaint: Patient states that she was having pain in her lower back/kidney area and then she collected a urine in a hat and noticed that she had some black specks in her urine State that after that the pain in her back stopped but she has been having urgency and frequency State that she was worried that she may have a UTI wanting to get her urine checked Related Data Allergies Allergy/AdvReac Type Severity Reaction Status Date / Time No Known Allergies Allergy Verified 10/06/21 11:36 Worker's Comp Is this a Worker's Comp case?: No [facility] Disclaimer: The information contained in this section may have been updated after the patient was seen, as this information can be updated by other users. Medical History (Updated 07/26/23 @ 15:32 by Nayana Sweeney APRN) Abnormal electrocardiography Chest pain Dizziness Dyspnea Gastroesophageal reflux disease Near syncope Palpitations Tachycardia Tobacco dependence syndrome Social History Smoking Status: Current every day smoker tobacco type: cigarettes alcohol intake: never current occupational status: employed Travel in the last 8 weeks: Inside the [place] household members: family ROS Obtained: Yes All systems reviewed & no additional complaints except as documented and Yes Systems reviewed as appropriate & no additional complaints except as documented Constitutional Constitutional: Reports system reviewed and no additional complaints, except as documented, Reports as per HPI, Denies body ache, Denies chills and Denies fever(s) ENT Ears, Nose, Mouth, and Throat: Reports system reviewed and no additional complaints, except as documented and Reports as per HPI Cardiovascular Cardiovascular: Reports system reviewed and no additional complaints, except as documented and Reports as per HPI Respiratory Respiratory: Reports system reviewed and no additional complaints, except as documented and Reports as per HPI Gastrointestinal Gastrointestingal: Reports system reviewed and no additional complaints, except as documented and as per HPI; Denies abdominal pain Genitourinary Female Genitourinary: Reports system reviewed and no additional complaints, except as documented, Reports as per HPI, Reports dysuria, Reports flank pain, Reports urinary frequency and Reports urinary urgency Physical Exam General General appearance: alert and in no apparent distress Respiratory Respiratory exam: Present normal lung sounds bilaterally; Absent respiratory distress or wheezes Cardiovascular Cardiovascular exam: Present regular rate, normal rhythm and normal heart sounds Abdominal Exam Abdominal exam: Present soft and normal bowel sounds; Absent distention or tenderness Back Exam Back exam: Present isrrael
[2023-07-26 15:40] VITALS: BP 107/82; PULSE 80; RESP 20; TEMP 36.7; O2SAT 98
== END 2023-07-26 15:45 | disposition home or self-care (01) ==
PROVIDERS: Emergency Provider Nurse Practitioner; PCP Physician Assistant Medical
DX: R35.0 Frequency of micturition (principal); F17.210 Nicotine dependence, cigarettes, uncomplicated; K21.9 Gastro-esophageal reflux disease without esophagitis
CPT/HCPCS: 81001; 87086; 99203; 99212; G0463

== ENCOUNTER 2023-11-02 10:14 | Emergency (ER) | payer OTHER, SELFPAY ==
[2023-11-02 10:25] VITALS: BP 111/74; PULSE 71; RESP 18; TEMP 36.8; O2SAT 99; BMI 16.2
--- NOTE | 2023-11-02 10:30 | EXP.UTC ---
Discharge Plan Disposition Patient Disposition: Home, Self-Care Condition: Good Prescriptions Prescriptions: New fluticasone propionate [Flonase Allergy Relief] 50 mcg/actuation spray,suspension 1 spray intranasal DAILY Qty: 16 0RF Rx Instructions: administer into each nostril No Action estradiol 0.01 % (0.1 mg/gram) cream 1 applic VAGINAL DAILY cholecalciferol (vitamin D3) 1,250 mcg (50,000 unit) capsule 1,250 mcg PO DAILY Creon 24,000-76,000 -120,000 unit capsule,delayed release(DR/EC) 1 cap PO TID Trintellix 10 mg tablet 10 mg PO DAILY Referrals Follow up/Referrals: Provider,Referral, MD [Primary Care Provider] - See instructions Clinical Impressions Clinical Impression: Eustachian tube dysfunction Qualifiers: Laterality: left Qualified Code(s): H69.92 - Unspecified Eustachian tube disorder, left ear Instructions Patient Instructions: DI for Eustachian Tube Dysfunction-Adult Discharge ED Provider: Salma Bloom [facility] General Stated complaint: left ear pain Mode of Arrival: Ambulatory Source of Information: Patient Limitations: No Limitations Time Seen by Provider: 11/02/23 10:29 Description of Symptoms (Recalled from Triage Doc. by RN): PATIENT C/O LEFT EAR PAIN X 2 DAYS HEENT Symptoms (Recalled from RN notes): Yes Resp Symptoms (Recalled from RN notes): No Skin Symptoms (Recalled from RN notes): No MS Symptoms (Recalled from RN notes): No Functional Status (Recalled from RN notes): WNL History of Present Illness Provider Complaint: Pt relates that her left ear started hurting yesterday. She states that she has had some clear sinus drainage. She states that she has not taken anything for her symptoms. Related Data Home Medications Medication Instructions Recorded Confirmed cholecalciferol (vitamin D3) 1,250 1,250 mcg PO DAILY 11/02/23 11/02/23 mcg (50,000 unit) capsule estradiol 0.01% (0.1 mg/gram) 1 applic vaginal DAILY 11/02/23 11/02/23 vaginal cream akxnxo-jqnnocom-ucmbhyw 1 cap PO TID 11/02/23 11/02/23 24,000-76,000-120,000 unit capsule,delayed rel (Creon) vortioxetine 10 mg tablet 10 mg PO DAILY 11/02/23 11/02/23 (Trintellix) Previous Rx's Medication Instructions Recorded fluticasone propionate 50 1 spray intranasal DAILY #16 grams 11/02/23 mcg/actuation nasal spray,suspension (Flonase Allergy Relief) Allergies Allergy/AdvReac Type Severity Reaction Status Date / Time No Known Allergies Allergy Verified 10/06/21 11:36 Worker's Comp Is this a Worker's Comp case?: No [facility] Disclaimer: The information contained in this section may have been updated after the patient was seen, as this information can be updated by other users. Medical History (Updated 11/02/23 @ 10:37 by Salma Bloom APRN) Abnormal electrocardiography Chest pain Dizziness Dyspnea Gastroesophageal reflux disease Near syncope Palpitations Tachycardia Tobacco dependence syndrome Social History Smoking Status: Current every day smoker tobacco type: cigarettes alcohol intake: never current occupational status: employed Travel in the last 8 weeks: Inside the [place] household members: family ROS Obtained: Yes All systems reviewed & no additional complaints except as documented Constitutional Constitutional: Reports system reviewed and no additional complaints, except as documented Eyes Eyes: Reports system reviewed and no additional complaints, except as documented ENT Ears, Nose, Mouth, and Throat: Reports system reviewed and no additional complaints, except as documented, Reports otalgia and Reports nasal discharge Cardiovascular Cardiovascular: Reports system reviewed and no additional complaints, except as documented Respiratory Respiratory: Reports system reviewed and no additional complaints, except as documented Gastrointestinal Gastrointestingal: Reports system reviewed and no additional complaints,
[2023-11-02 10:38] VITALS: BP 111/74; PULSE 71; RESP 18; TEMP 36.8; O2SAT 99
== END 2023-11-02 10:39 | disposition home or self-care (01) ==
PROVIDERS: Emergency Provider Nurse Practitioner Family
DX: H69.92 Unspecified Eustachian tube disorder, left ear (principal); F17.210 Nicotine dependence, cigarettes, uncomplicated; K21.9 Gastro-esophageal reflux disease without esophagitis
CPT/HCPCS: 99212; 99214; G0463

== ENCOUNTER 2023-12-02 10:17 | Outpatient (CLI) | payer OTHER, SELFPAY ==
[2023-12-02 11:47] LABS: Free Thyroxine Index 1.7 ug/dL (5.93-13.13); T4 (Thyroxine) 5.2 ug/dl (5.53-11.0); Triiodothryronine (T3) Uptake 33 % (23.5-40.5)
[2023-12-02 12:01] LABS: Thyroid Stimulating Hormone 1.91 uIU/mL (0.465-4.68)
[2023-12-03 09:16] LABS: Thyroid Peroxidase Antibodies <9 IU/mL (0-34)
== END 2023-12-02 23:59 ==
LOC: LAB 10:18
PROVIDERS: PCP Family Medicine Addiction Medicine; Visit Provider Physician Assistant
DX: R00.0 Tachycardia, unspecified (principal); R00.2 Palpitations; R06.09 Other forms of dyspnea; R60.0 Localized edema; R94.31 Abnormal electrocardiogram [ECG] [EKG]; K21.9 Gastro-esophageal reflux disease without esophagitis; K90.9 Intestinal malabsorption, unspecified
CPT/HCPCS: 36415; 84436; 84443; 84479; 86376; 93270

== ENCOUNTER 2023-12-06 07:24 | Outpatient (CLI) | payer OTHER, SELFPAY ==
[2023-12-11 01:07] LABS: Dopamine, Ur, 24hr 326 ug/24 hr (0-510); Dopamine, Urine 233 ug/L (Undefined); Epinephrine, U, 24hr 7 ug/24 hr (0-20); Epinephrine, Urine 5 ug/L (Undefined); Norepinephrine, Ur 37 ug/L (Undefined); Norepinephrine,U,24h 52 ug/24 hr (0-135); VMA, Urine, 24hr 4.2 mg/24 hr (0.0-7.5)
== END 2023-12-06 23:59 ==
LOC: LAB.DROPOF 07:26
PROVIDERS: Physician Assistant; Visit Provider Physician Assistant
DX: K21.9 Gastro-esophageal reflux disease without esophagitis (principal); K90.9 Intestinal malabsorption, unspecified; R00.0 Tachycardia, unspecified; R00.2 Palpitations; R06.02 Shortness of breath; R07.89 Other chest pain; R94.31 Abnormal electrocardiogram [ECG] [EKG]
CPT/HCPCS: 82384; 84585

== ENCOUNTER 2024-04-21 18:56 | Outpatient (CLI) | payer OTHER, SELFPAY ==
[2024-04-21 19:20] LABS: Basophils # 0.1 K/mm3 (0-0.2); Basophils % 1.5 % (0.1-2.0); Eosinophils # 0.2 K/mm3 (0.0-0.4); Eosinophils % 1.9 % (0.1-12.0); Hematocrit 43.3 % (37.0-47.0); Lymphocytes # 2.9 K/mm3 (0.7-4.5); Lymphocytes % 31.9 % (10-50); Mean Corpuscular HGB Conc 32.4 g/dL (31.8-35.4); Mean Corpuscular Hemoglobin 31.3 pg (27.0-31.2); Mean Corpuscular Volume 96.5 fl (81-99); Mean Platelet Volume 8.3 fl (7.4-10.4); Monocytes # 0.6 K/mm3 (0.1-1.0); Monocytes % 6.9 % (1.7-9.3); Neutrophils # 5.3 K/mm3 (1.8-7.8); Neutrophils % 57.9 % (37.0-80.0); Platelet Count 232 K/mm3 (142-424); Red Blood Count 4.48 M/mm3 (4.20-5.40); Red Cell Distribution Width 13.4 % (11.5-17.5); White Blood Count 9.1 K/mm3 (4.8-10.8)
[2024-04-21 20:15] LABS: Alanine Aminotransferase 17 U/L (12-78); Albumin Level 4.6 g/dl (3.5-5.0); Albumin/Globulin Ratio 1.6 (1.1-1.8); Alkaline Phosphatase 78 U/L (38-126); Anion Gap 11.5 mEq/L (5-15); Aspartate Amino Transferase 27 U/L (14-36); Bilirubin,Total 0.4 mg/dl (0.2-1.3); Blood Urea Nitrogen 11 mg/dl (7-17); Calcium 9.7 mg/dl (8.4-10.2); Carbon Dioxide 30 mmol/L (22.0-30.0); Chloride 101 mmol/L (98-107); Estimated Glomerular Filt Rate 67 ml/min (>60); GFR (African American) 81 ML/MIN (>60); Globulin 2.8 g/dL (1.3-3.2); Glucose 88 mg/dl (74-100); Potassium 4.5 mmoL/L (3.5-5.1); Sodium 138 mmol/L (136-145); Total Protein,Serum 7.4 g/dl (6.3-8.2)
[2024-04-21 20:32] LABS: 25-OH Vitamin D, Total 43.6 ng/mL (30-100)
[2024-04-21 21:27] LABS: Total Iron Binding Capacity 217 ug/dL (265-497)
[2024-04-21 21:29] LABS: Iron 63 ug/dL (37-170)
[2024-04-21 21:54] LABS: Ferritin 112 ng/ml (6.24-137)
[2024-04-21 22:29] LABS: Vitamin B12 426 pg/mL (239-931)
== END 2024-04-21 23:59 | disposition home or self-care (01) ==
LOC: LAB 18:57
PROVIDERS: PCP Nurse Practitioner Family; Visit Provider Nurse Practitioner Family
DX: R63.4 Abnormal weight loss (principal); K86.81 Exocrine pancreatic insufficiency; R53.83 Other fatigue; Z68.1 Body mass index [BMI] 19.9 or less, adult; Z79.899 Other long term (current) drug therapy; E61.1 Iron deficiency
CPT/HCPCS: 36415; 80053; 82306; 82607; 82728; 83540; 83550; 85025

== ENCOUNTER 2024-04-22 17:09 | Outpatient (CLI) | payer OTHER, SELFPAY ==
--- NOTE | 2024-04-22 17:19 | MM_ITS ---
PROCEDURE INFORMATION: Exam: MG Bilateral Screening 3D Mammography Exam date and time: 04/22/2024 5:05 PM Age: 48 years old Clinical indication: Screening examination TECHNIQUE: Imaging protocol: Bilateral Screening tomosynthesis and 2D mammography including computer-aided detection (CAD) when performed. COMPARISON: 1. MG MM DIG SC MAMM IMPLANT BI CAD 04/15/2023 8:01 AM 2. MG MM DIG SC MAMM IMPLANT BI CAD 11/01/2021 8:07 AM FINDINGS: MAMMOGRAPHY: Breast composition: The breasts are heterogeneously dense, which may obscure small masses. Mass: None. Architectural distortion: None. Calcifications: No suspicious calcifications. Asymmetric density: None. Skin thickening: None. Axillary adenopathy: None. Implants: Subpectoral silicone breast implants are present. The contours are smooth. IMPRESSION: No mammographic evidence of malignancy. Annual screening is recommended unless otherwise clinically indicated. ASSESSMENT: BI-RADS Category 1: Negative
== END 2024-04-22 23:59 | disposition home or self-care (01) ==
LOC: RAD 17:10
PROVIDERS: PCP Internal Medicine; Visit Provider Obstetrics & Gynecology
DX: Z12.31 Encounter for screening mammogram for malignant neoplasm of breast (principal)
CPT/HCPCS: 77063; 77067